=== PATIENT | female | born 1990 | race Caucasian/White ===

== ENCOUNTER 2025-02-20 16:12 | Outpatient (CLI) | payer MEDICAID ==
--- NOTE | 2025-02-20 16:52 | RADIOLOGY REPORT ---
PROCEDURE: MR MRI LUMBAR SPINE INDICATION: LUMBAGO WITH SCIATICA, RIG Exam Date: 02/20/2025 04:01 PM COMPARISON: None TECHNIQUE: MRI lumbar spine without intravenous contrast. FINDINGS: The lumbar alignment is intact. There are degenerative endplate changes including modic endplate ch anges with anterior and lateral osteophytes throughout the lumbar spine. The visualized distal spinal cord and conus medullaris are within normal limits. The conus medullaris appears to terminate withi n normal limits. The visualized retroperitoneal and paraspinal soft tissues are unremarkable. The following axial levels are detailed below: T12-L1: Unremarkable. L1-L2: Unremarkable. L2-L3: Unremarkable. L3-L4: Unremarkable. L4-L5: There is a moderate circumferential disc bulge complicated by facet arthropathy associated w ith mild to moderate bilateral neuroforaminal stenosis right greater than left. No significant centra l canal stenosis. L5-S1: There is a moderate circumferential disc bulge eccentric to the left complicated by facet art hropathy associated with left lateral recess stenosis as well as moderate bilateral neuroforaminal s tenosis left greater than right. No significant central canal stenosis. IMPRESSION: 1. Degenerative disease greatest in the lower lumbar spine. No significant central canal stenosis. Left lateral recess stenosis L5-SNeural foraminal stenosis as above. HS:Y
== END 2025-02-20 23:59 | disposition home or self-care (01) ==
LOC: MRI02 16:12
PROVIDERS: ATTEND Nurse Practitioner
DX: M51.17 Intervertebral disc disorders with radiculopathy, lumbosacral region (principal); M48.07 Spinal stenosis, lumbosacral region
CPT/HCPCS: 72148